=== PATIENT | female | born 1940 | race Caucasian/White ===

== ENCOUNTER → 2017-09-03 | Outpatient (CLI) | payer OTHER ==
[~2017-09-03] MED LIST: ALBU18HF7 IH; ALBU2.5V2 IH; ASPI-555 PO; AZIT250T PO; CALC-483 PO; CHOL3000 PO; Divalproex Sodium PO; FLUT1BLS IH; FOLI0.8C PO; FURO20TA4 PO; GABA-531 PO; INSU100V12 SQ; IOPAMIDOL-370 100 ML VIAL IV ONE; ISOS20TA7 PO; LANS30CA55 PO; LEVO150T11 PO; LEVO175T9 PO; LOSA25TA21 PO; MAGN400T40 PO; METO25TA6 PO; MONT10TA24 PO; NIAC1CAP PO; PANT40TA25 PO; PRED10TA3 PO; PRED2.5T PO; PRED20B PO; PRED5TAB PO; Prednisone PO; RIVA15TA PO; SUCR1TAB PO; SUCR1TAB2 PO; UBID1CAP56 PO; WARF-57 PO; WARF2.5T47 PO; WARF5TAB76 PO
== END | disposition home or self-care (01) ==
LOC: RAH 12:13
PROVIDERS: ATTEND Internal Medicine
DX: R06.02 Shortness of breath (principal); R07.9 Chest pain, unspecified; M47.895 Other spondylosis, thoracolumbar region; Z86.711 Personal history of pulmonary embolism
CPT/HCPCS: 71275; Q9967

== ENCOUNTER 2017-09-10 16:14 | Emergency (ER) | payer OTHER ==
[~2017-09-10 16:14] MED LIST changes: -ASPI-555 PO; -AZIT250T PO; -FOLI0.8C PO; -FURO20TA4 PO; -GABA-531 PO; -IOPAMIDOL-370 100 ML VIAL IV ONE; -ISOS20TA7 PO; -LEVO175T9 PO; -MAGN400T40 PO; -METO25TA6 PO; -NIAC1CAP PO; -PANT40TA25 PO; -PRED10TA3 PO; -PRED2.5T PO; -PRED5TAB PO; -SUCR1TAB2 PO; -UBID1CAP56 PO; -WARF-57 PO; -WARF2.5T47 PO; -WARF5TAB76 PO
[2017-09-10 16:46] LABS: BASOPHILS % (AUTO) 4.3 % (0.0-5.0); EOSINOPHILS % (AUTO) 0.1 % (0.0-8.0); HEMATOCRIT 42.6 % (36-48); LYMPHOCYTES % (AUTO) 9.5 % (21.0-51.0); MEAN CORPUSCULAR HEMOGLOBIN 29.5 pg (27.0-33.0); MEAN CORPUSCULAR HGB CONC 33.4 g/dL (32.0-36.0); MEAN CORPUSCULAR VOLUME 88.4 fL (79-99); MONOCYTES % (AUTO) 5.2 % (3.0-13.0); NEUTROPHILS % (AUTO) 80.9 % (40.0-77.0); NUCLEATED RED BLOOD CELLS 0.1 % (0.0-0.19); PLATELET COUNT (AUTO) 312 K/uL (130-400); RED BLOOD CELL COUNT(AUTO) 4.82 MIL/uL (4.00-5.50); RED CELL DISTRIBUTION WIDTH 14.6 % (11.0-15.5); WHITE BLOOD COUNT (AUTO) 11.3 K/uL (4.8-10.8)
[2017-09-10 16:56] LABS: INR 2.71 (0.85-1.15); PARTIAL THROMBOPLASTIN TIME 34.6 SEC (26.3-35.5); PROTHROMBIN TIME 27.9 SEC (9.6-11.6)
[2017-09-10 16:58] LABS: CREATININE 0.8 mg/dL (0.5-1.5); POTASSIUM 4.5 mmol/L (3.5-5.1)
[2017-09-10 17:01] LABS: B-TYPE NATRIURETIC PEPTIDE 63 pg/mL (0-100)
[2017-09-10 17:04] LABS: ALBUMIN 3.4 g/dL (3.5-5.0); BILIRUBIN,TOTAL 0.4 mg/dL (0.2-1.0)
[2017-09-10] MEDS ORDERED: NITROGLYCERIN 0.4 MG SL TAB SL ONE (18:03)
[2017-09-10] MEDS ORDERED: ASPIRIN 325 MG TABLET ONE (18:03)
== END 2017-09-10 20:26 | disposition home or self-care (01) ==
LOC: EDH 16:14
DX: R07.89 Other chest pain (principal); E11.9 Type 2 diabetes mellitus without complications; J45.909 Unspecified asthma, uncomplicated; I25.10 Atherosclerotic heart disease of native coronary artery without angina pectoris; E78.5 Hyperlipidemia, unspecified; I10 Essential (primary) hypertension; Z86.73 Personal history of transient ischemic attack (TIA), and cerebral infarction without residual deficits; E07.9 Disorder of thyroid, unspecified; Z88.0 Allergy status to penicillin; Z88.1 Allergy status to other antibiotic agents; Z88.5 Allergy status to narcotic agent; Z88.6 Allergy status to analgesic agent
CPT/HCPCS: 36415; 71045; 80053; 83880; 84484; 85025; 85610; 85730; 93005

== ENCOUNTER 2017-09-22 12:41 | Observation (INO) | payer OTHER ==
[~2017-09-22] VITALS: Ht 160 cm; Wt 91.9 kg
[2017-09-22 13:08] LABS: BASOPHILS % (AUTO) 0.9 % (0.0-5.0); EOSINOPHILS % (AUTO) 0.4 % (0.0-8.0); LYMPHOCYTES % (AUTO) 21.1 % (21.0-51.0); MEAN CORPUSCULAR HEMOGLOBIN 30.3 pg (27.0-33.0); MEAN CORPUSCULAR HGB CONC 34.2 g/dL (32.0-36.0); MEAN CORPUSCULAR VOLUME 88.4 fL (79-99); MONOCYTES % (AUTO) 6.3 % (3.0-13.0); NEUTROPHILS % (AUTO) 71.3 % (40.0-77.0); NUCLEATED RED BLOOD CELLS 0.1 % (0.0-0.19); PLATELET COUNT (AUTO) 247 K/uL (130-400); RED BLOOD CELL COUNT(AUTO) 4.41 MIL/uL (4.00-5.50); RED CELL DISTRIBUTION WIDTH 14.7 % (11.0-15.5); WHITE BLOOD COUNT (AUTO) 9.8 K/uL (4.8-10.8)
[2017-09-22 13:18] LABS: CREATININE 0.9 mg/dL (0.5-1.5); POTASSIUM 4.5 mmol/L (3.5-5.1)
[2017-09-22 13:19] LABS: INR 3.08 (0.85-1.15); PARTIAL THROMBOPLASTIN TIME 35.9 SEC (26.3-35.5); PROTHROMBIN TIME 31.6 SEC (9.6-11.6)
[2017-09-22 13:22] LABS: ALBUMIN 3.2 g/dL (3.5-5.0); BILIRUBIN,TOTAL 0.4 mg/dL (0.2-1.0); TOTAL PROTEIN, SERUM 6.2 g/dL (6.0-8.3)
[2017-09-22] MEDS ORDERED: IOPAMIDOL-370 100 ML VIAL IV ONE (15:55)
[2017-09-22] MEDS ORDERED: SODIUM CHLORIDE 0.9% 1000ML 1,000 ML IV ONE (17:22)
[2017-09-22 18:28] VITALS: BP 157/94
[2017-09-22] MEDS ORDERED: METO25TA6 PO (18:30)
[2017-09-22] MEDS ORDERED: FURO20TA4 PO (18:30)
[2017-09-22] MEDS ORDERED: INSU100V12 SQ (18:30)
[2017-09-22] MEDS ORDERED: WARF-57 PO (18:30)
[2017-09-22] MEDS ORDERED: ASPI-555 PO (18:30)
[2017-09-22] MEDS ORDERED: MAGN400T40 PO (18:30)
[2017-09-22] MEDS ORDERED: SUCR1TAB2 PO (18:30)
[2017-09-22] MEDS ORDERED: PANT40TA25 PO (18:30)
[2017-09-22] MEDS ORDERED: UBID1CAP56 PO (18:30)
[2017-09-22] MEDS ORDERED: ISOS20TA7 PO (18:30)
[2017-09-22] MEDS ORDERED: GABA-531 PO (18:30)
[2017-09-22] MEDS ORDERED: PRED2.5T PO (18:30)
[2017-09-22] MEDS ORDERED: FOLI0.8C PO (18:30)
[2017-09-22] MEDS ORDERED: LEVO175T9 PO (18:30)
[2017-09-22] MEDS ORDERED: PRED5TAB PO (18:30)
[2017-09-22] MEDS ORDERED: NIAC1CAP PO (18:30)
[2017-09-22] MEDS: SODIUM CHLORIDE 0.9% 1000ML 1,000 ML IV SCH (19:41)
[2017-09-22 19:45] VITALS: BP 149/84
[2017-09-22 20:26] LABS: CREATINE KINASE MB 0.7 ng/mL (0.5-3.6); CREATINE KINASE, TOTAL 39 U/L (21-232); MYOGLOBIN 34 ng/mL (10-92); TROPONIN I < 0.04 ng/mL (0.00-0.06)
[2017-09-22] MEDS ORDERED: LIDOCAINE HCL 2% VISCOUS 30 ML, MAG HYDROX/AL HYDROX/SIMETH 30 ML, BELLADONNA-PHENOBARB... PO PRN ×3 (21:15)
[2017-09-22] MEDS ORDERED: ONDANSETRON HCL 4 MG/2 ML VIAL IV PRN (21:15)
[2017-09-22] MEDS ORDERED: LIDOCAINE HCL-MPF 1% 2ML VIAL IVP PRN (21:15)
[2017-09-22] MEDS ORDERED: GUAIFENESIN-DM 200/20 MG 10 ML PO PRN (21:15)
[2017-09-22] MEDS ORDERED: CLONAZEPAM 0.5 MG TABLET PO PRN (21:15)
[2017-09-22] MEDS ORDERED: ALBUTEROL SULFATE 0.083% 2.5 MG/3 ML INH IH PRN (21:15)
[2017-09-22] MEDS ORDERED: DEXTROSE 50%-WATER 50 ML DISP.SYRIN IV PRN (21:15)
[2017-09-22] MEDS ORDERED: POTASSIUM CHLORIDE 20 MEQ ERTAB PO PRN (21:15)
[2017-09-22] MEDS ORDERED: POTASSIUM CHLORIDE 20MEQ/100ML 100 ML IV PRN (21:15)
[2017-09-22] MEDS ORDERED: GLUCAGON 1MG KIT 1 MG ML IM PRN (21:15)
[2017-09-22] MEDS ORDERED: SUCRALFATE 1 GM TABLET PO PRN (21:15)
[2017-09-22] MEDS ORDERED: MAG HYDROX/AL HYDROX/SIMETH ES 30 ML SUSP UDCUP PO PRN (21:15)
[2017-09-22] MEDS ORDERED: INSULIN DETEMIR 10ML 100 UNIT/ML 10ML SQ PRN (21:15)
[2017-09-22] MEDS ORDERED: POTASSIUM CHLORIDE 10% ELIXIR 20 MEQ/15 ML UDCUP PO PRN (21:15)
[2017-09-22] MEDS ORDERED: WARFARIN SODIUM 5 MG TAB PO SCH (21:15)
[2017-09-22] MEDS ORDERED: LACTULOSE 20 GM/30 ML UDCUP PO PRN (21:15)
[2017-09-22] MEDS ORDERED: CELECOXIB 200 MG CAP PO PRN (21:30)
[2017-09-22] MEDS: AZITHROMYCIN 250 MG TABLET PO SCH (23:15)
[2017-09-22] MEDS ORDERED: WARF5TAB76 PO (23:29)
[2017-09-22] MEDS ORDERED: WARF2.5T47 PO (23:29)
[2017-09-22 23:30] VITALS: BP 137/75
[2017-09-23 02:17] LABS: CREATINE KINASE MB 0.5 ng/mL (0.5-3.6); CREATINE KINASE, TOTAL 36 U/L (21-232); MYOGLOBIN 25 ng/mL (10-92); TROPONIN I < 0.04 ng/mL (0.00-0.06)
[2017-09-23] MEDS: SODIUM CHLORIDE 0.9% 1000ML 1,000 ML IV SCH (03:27)
[2017-09-23 04:18] VITALS: BP 131/75
[2017-09-23] MEDS ORDERED: LEVOTHYROXINE 75 MCG TABLET PO SCH (06:30)
[2017-09-23] MEDS: INSULIN HUMULIN R 100 UNIT/ML 3ML SQ SCH ×3 (06:31→16:30)
[2017-09-23] MEDS ORDERED: WARF2.5T47 PO (06:59)
[2017-09-23] MEDS ORDERED: WARF5TAB76 PO (06:59)
[2017-09-23 07:00] VITALS: BP 135/72
[2017-09-23] MEDS ORDERED: LEVOTHYROXINE 100 MCG TABLET PO SCH (07:30)
[2017-09-23] MEDS ORDERED: FLUTICASONE/VILANTEROL 1 EACH BLST.W.DEV IH SCH (09:00)
[2017-09-23] MEDS ORDERED: ASPIRIN 81 MG EC TAB PO SCH (09:00)
[2017-09-23] MEDS ORDERED: METOPROLOL TARTRATE 25 MG TAB PO SCH (09:00)
[2017-09-23] MEDS ORDERED: FOLIC ACID 1 MG TABLET PO SCH (09:00)
[2017-09-23] MEDS ORDERED: MAGNESIUM OXIDE 400 MG TABLET PO SCH (09:00)
[2017-09-23] MEDS ORDERED: PREDNISONE 5 MG TABLET PO SCH ×2 (09:00→21:00)
[2017-09-23] MEDS ORDERED: PANTOPRAZOLE SODIUM 40 MG TABLET.DR PO SCH ×2 (09:00→21:00)
[2017-09-23] MEDS ORDERED: AZIT250T PO (09:35)
[2017-09-23] MEDS ORDERED: PRED10TA3 PO (09:35)
[2017-09-23] MEDS ORDERED: PREDNISONE 20 MG TABLET ONE (10:37)
[2017-09-23 11:00] VITALS: BP 132/72
[2017-09-23 16:00] VITALS: BP 151/89
[2017-09-23] MEDS: AZITHROMYCIN 250 MG TABLET PO SCH (18:50)
[2017-09-23] MEDS ORDERED: WARFARIN SODIUM 2.5 MG TAB PO SCH (21:00)
[2017-09-23] MEDS ORDERED: ISOSORBIDE MONONITRATE 20 MG TABLET PO SCH (21:00)
[2017-09-23] MEDS ORDERED: WARFARIN SODIUM 5 MG TAB PO SCH ×2 (21:00)
[2017-09-23] MEDS ORDERED: LOSARTAN 50 MG TABLET PO SCH (21:00)
[2017-09-23] MEDS ORDERED: GABAPENTIN 300 MG CAPSULE PO SCH (21:00)
[2017-09-24] MEDS ORDERED: PREDNISONE 20 MG TABLET PO SCH (09:00)
[2017-09-25] MEDS ORDERED: WARFARIN SODIUM 2.5 MG TAB PO SCH (16:00)
== END 2017-09-23 19:00 | disposition home or self-care (01) ==
LOC: EDH 12:41 → EDHIP 15:26 → 4CH 17:59
PROVIDERS: ADMIT Internal Medicine; ATTEND Internal Medicine
DX: R07.89 Other chest pain (principal); R55 Syncope and collapse; J45.909 Unspecified asthma, uncomplicated; E11.9 Type 2 diabetes mellitus without complications; E78.5 Hyperlipidemia, unspecified; I10 Essential (primary) hypertension; E03.9 Hypothyroidism, unspecified; M31.6 Other giant cell arteritis; J84.10 Pulmonary fibrosis, unspecified; Z79.01 Long term (current) use of anticoagulants; Z79.52 Long term (current) use of systemic steroids; Z80.0 Family history of malignant neoplasm of digestive organs; Z80.3 Family history of malignant neoplasm of breast; Z82.0 Family history of epilepsy and other diseases of the nervous system; Z82.3 Family history of stroke; Z82.49 Family history of ischemic heart disease and other diseases of the circulatory system; Z82.5 Family history of asthma and other chronic lower respiratory diseases; Z83.3 Family history of diabetes mellitus; Z86.711 Personal history of pulmonary embolism; Z86.73 Personal history of transient ischemic attack (TIA), and cerebral infarction without residual deficits
CPT/HCPCS: 36415 ×2; 71045; 71275; 80053; 82550 ×2; 82553 ×2; 82948 ×3; 83874 ×2; 84484 ×3; 85025; 85610; 85730; 93005; 94664; 96360; 96361 ×2; 96372; 99285; G0378 ×28; J1815; J7030 ×2; Q9967

== ENCOUNTER → 2018-07-23 | Outpatient (CLI) | payer OTHER ==
[~2018-07-23] MED LIST changes: +ASPI-555 PO; +AZIT250T PO; -Divalproex Sodium PO; +FOLI0.8C PO; +FURO20TA4 PO; +GABA-531 PO; +ISOS20TA7 PO; -LANS30CA55 PO; -LEVO150T11 PO; +LEVO175T9 PO; +LOSA25TA16 PO; -LOSA25TA21 PO; +MAGN400T40 PO; +METO25TA6 PO; -MONT10TA24 PO; +NIAC1CAP PO; +PANT40TA25 PO; +PRED10TA3 PO; -PRED20B PO; -Prednisone PO; -RIVA15TA PO; -SUCR1TAB PO; +SUCR1TAB2 PO; +UBID1CAP56 PO; +WARF2.5T47 PO; +WARF5TAB76 PO
== END | disposition home or self-care (01) ==
LOC: RAH 12:59
PROVIDERS: ATTEND Internal Medicine
DX: M47.26 Other spondylosis with radiculopathy, lumbar region (principal); M51.16 Intervertebral disc disorders with radiculopathy, lumbar region; M48.061 Spinal stenosis, lumbar region without neurogenic claudication
CPT/HCPCS: 72148

== ENCOUNTER → 2020-01-28 | Outpatient (CLI) | payer OTHER ==
[~2020-01-28] MED LIST changes: -ASPI-555 PO; +ASPI-556 PO; -LOSA25TA16 PO; +LOSA25TA41 PO; +WARF2.5T PO; -WARF2.5T47 PO; +WARF5TAB PO; -WARF5TAB76 PO
== END | disposition home or self-care (01) ==
LOC: RAH 09:11
PROVIDERS: ATTEND Internal Medicine
DX: M47.814 Spondylosis without myelopathy or radiculopathy, thoracic region (principal); R07.81 Pleurodynia
CPT/HCPCS: 71100

== ENCOUNTER → 2020-02-10 | Outpatient (CLI) | payer OTHER ==
[~2020-02-10] MED LIST changes: -PANT40TA25 PO; +PANT40TA54 PO
== END | disposition home or self-care (01) ==
LOC: OIH 09:17
PROVIDERS: ATTEND Internal Medicine
DX: Z04.3 Encounter for examination and observation following other accident (principal); M19.031 Primary osteoarthritis, right wrist; J01.00 Acute maxillary sinusitis, unspecified
CPT/HCPCS: 70150; 73100

== ENCOUNTER → 2020-02-27 | Outpatient (CLI) | payer OTHER ==
[~2020-02-27] MED LIST changes: +PANT40TA25 PO; -PANT40TA54 PO
== END | disposition home or self-care (01) ==
LOC: RAH 10:14
PROVIDERS: ATTEND Internal Medicine
DX: M51.16 Intervertebral disc disorders with radiculopathy, lumbar region (principal); M48.061 Spinal stenosis, lumbar region without neurogenic claudication
CPT/HCPCS: 72148

== ENCOUNTER → 2020-05-04 | Outpatient (CLI) | payer OTHER ==
[~2020-05-04] MED LIST changes: -PANT40TA25 PO; +PANT40TA54 PO
== END | disposition home or self-care (01) ==
LOC: RAH 07:52
PROVIDERS: ATTEND Physical Medicine & Rehabilitation
DX: S22.088A Other fracture of T11-T12 vertebra, initial encounter for closed fracture (principal); X58.XXXA Exposure to other specified factors, initial encounter; Y93.89 Activity, other specified; Y92.89 Other specified places as the place of occurrence of the external cause; Y99.8 Other external cause status; M48.04 Spinal stenosis, thoracic region
CPT/HCPCS: 72146

== ENCOUNTER → 2020-06-04 | Outpatient (CLI) | payer OTHER | END | disposition home or self-care (01) | LOC: RAH 11:08 | PROVIDERS: ATTEND Physical Medicine & Rehabilitation | DX: M48.02 Spinal stenosis, cervical region (principal); M50.222 Other cervical disc displacement at C5-C6 level; M50.223 Other cervical disc displacement at C6-C7 level | CPT/HCPCS: 72141 ==

== ENCOUNTER → 2020-06-08 | Outpatient (CLI) | payer OTHER | END | disposition home or self-care (01) | LOC: RAH 10:00 | PROVIDERS: ATTEND Internal Medicine | DX: R20.2 Paresthesia of skin (principal); R22.41 Localized swelling, mass and lump, right lower limb; M79.89 Other specified soft tissue disorders | CPT/HCPCS: 93925; 93970 ==

== ENCOUNTER → 2020-07-15 | Outpatient (CLI) | payer OTHER | END | disposition home or self-care (01) | LOC: RAH 11:50 | PROVIDERS: ATTEND Internal Medicine | DX: J84.89 Other specified interstitial pulmonary diseases (principal); I10 Essential (primary) hypertension; M51.34 Other intervertebral disc degeneration, thoracic region | CPT/HCPCS: 71046 ==

== ENCOUNTER → 2020-08-30 | Outpatient (CLI) | payer MEDICARE | END | disposition home or self-care (01) | LOC: RAH 09:24 | PROVIDERS: ATTEND Neurological Surgery | DX: M85.88 Other specified disorders of bone density and structure, other site (principal); M43.22 Fusion of spine, cervical region; M50.30 Other cervical disc degeneration, unspecified cervical region | CPT/HCPCS: 72040 ==

== ENCOUNTER 2020-09-20 11:15 | Observation (INO) | payer MEDICARE ==
[~2020-09-20] VITALS: Ht 160 cm; Wt 92.5 kg
[~2020-09-20 11:15] MED LIST changes: -ISOS20TA7 PO; +ISOS20TA85 PO
[2020-09-20 11:45] LABS: EOSINOPHILS % (AUTO) 4.8 % (0.0-8.0); HEMATOCRIT 43.4 % (36-48); LYMPHOCYTES % (AUTO) 39.2 % (21.0-51.0); MEAN CORPUSCULAR HEMOGLOBIN 29.9 pg (27.0-33.0); MEAN CORPUSCULAR HGB CONC 33.9 g/dL (32.0-36.0); MEAN CORPUSCULAR VOLUME 88.4 fL (79-99); MONOCYTES % (AUTO) 8.5 % (3.0-13.0); NEUTROPHILS % (AUTO) 45.9 % (40.0-77.0); PLATELET COUNT (AUTO) 269 K/uL (130-400); RED BLOOD CELL COUNT(AUTO) 4.91 MIL/uL (4.00-5.50); WHITE BLOOD COUNT (AUTO) 7.2 K/uL (4.8-10.8)
[2020-09-20 11:55] LABS: POTASSIUM 3.7 mmol/L (3.5-5.1)
[2020-09-20 11:59] LABS: INR 1.7 (0.85-1.15); PROTHROMBIN TIME 17.7 SEC (9.6-11.6)
[2020-09-20 12:00] LABS: PARTIAL THROMBOPLASTIN TIME 31.8 SEC (26.3-35.5)
[2020-09-20 12:05] LABS: ALBUMIN 3.3 g/dL (3.5-5.0); BILIRUBIN,TOTAL 0.6 mg/dL (0.2-1.0); TOTAL PROTEIN, SERUM 6.9 g/dL (6.0-8.3)
[2020-09-20] MEDS ORDERED: SUCRALFATE 1 GM TABLET PO PRN (13:45)
[2020-09-20] MEDS ORDERED: WARF-57 PO (13:48)
[2020-09-20] MEDS ORDERED: SUCR1TAB2 PO (13:48)
[2020-09-20] MEDS ORDERED: INSU100I3 SQ (13:48)
[2020-09-20] MEDS ORDERED: PRED5TAB PO (13:48)
[2020-09-20] MEDS ORDERED: FURO40TA5 PO (13:48)
[2020-09-20] MEDS ORDERED: METO25TA6 PO (13:48)
[2020-09-20] MEDS ORDERED: LORA10TA7 PO (13:48)
[2020-09-20] MEDS ORDERED: WARF2.5T85 PO (13:48)
[2020-09-20] MEDS ORDERED: INSU100I24 SQ (13:48)
[2020-09-20] MEDS ORDERED: GABA300C PO (13:48)
[2020-09-20] MEDS ORDERED: POTA-79 PO (13:48)
[2020-09-20] MEDS ORDERED: DILT30TA38 PO ×2 (13:48)
[2020-09-20] MEDS ORDERED: PANT40TA54 PO (13:48)
[2020-09-20] MEDS ORDERED: FLUT1DIS3 IH (13:48)
[2020-09-20] MEDS ORDERED: DiphenhydrAMINE HCL 50 MG/ML VIAL IV PRN (14:00)
[2020-09-20] MEDS: SODIUM CHLORIDE 0.9% 1000ML 1,000 ML IV SCH (14:00)
[2020-09-20] MEDS ORDERED: POTASSIUM CHLORIDE 20 MEQ ERTAB PO PRN (14:00)
[2020-09-20] MEDS ORDERED: LIDOCAINE HCL-MPF 1% 2ML VIAL IV PRN (14:00)
[2020-09-20] MEDS ORDERED: DEXTROSE 50%-WATER 50 ML DISP.SYRIN IV PRN (14:00)
[2020-09-20] MEDS ORDERED: ONDANSETRON HCL 4 MG/2 ML VIAL IV PRN (14:00)
[2020-09-20] MEDS ORDERED: POTASSIUM CHLORIDE 10% ELIXIR 20 MEQ/15 ML UDCUP PO PRN (14:00)
[2020-09-20] MEDS ORDERED: LACTULOSE 20 GM/30 ML UDCUP PO PRN (14:00)
[2020-09-20] MEDS ORDERED: GLUCAGON 1MG KIT 1 MG ML IM PRN (14:00)
[2020-09-20] MEDS ORDERED: POTASSIUM CHLORIDE 20MEQ/100ML 100 ML IV PRN (14:00)
[2020-09-20] MEDS ORDERED: DIPHENHYDRAMINE HCL 25 MG CAPSULE PO PRN (14:00)
[2020-09-20] MEDS ORDERED: ALBUTEROL SULFATE 0.083% 2.5 MG/3 ML INH IH PRN (14:00)
[2020-09-20] MEDS ORDERED: ACETAMINOPHEN 325 MG TAB PO PRN ×2 (14:00)
[2020-09-20] MEDS ORDERED: MAG HYDROX/AL HYDROX/SIMETH ES 30 ML SUSP UDCUP PO PRN (14:00)
[2020-09-20] MEDS ORDERED: MECLIZINE HCL 25 MG TABLET ONE (14:01)
[2020-09-20] MEDS ORDERED: PHARMACY COMMUNICATION MISC SCH (14:30)
[2020-09-20] MEDS ORDERED: WARFARIN SODIUM 1 MG TAB PO SCH (16:00)
[2020-09-20 16:38] VITALS: BP 146/82
[2020-09-20] MEDS: ADVAIR 250-50 DISKUS IH SCH (18:00)
[2020-09-20 20:56] VITALS: BP 137/79
[2020-09-20] MEDS ORDERED: SUB TO BREO ELLIPTA 100MCG/25MCG PER P&T IH SCH (21:00)
[2020-09-20] MEDS ORDERED: DILTIAZEM HCL 30 MG PO SCH (21:00)
[2020-09-20] MEDS: DILTIAZEM HCL 60 MG TABLET PO SCH (21:27)
[2020-09-20] MEDS: METOPROLOL TARTRATE 25 MG TAB PO SCH (21:27)
[2020-09-20] MEDS: ISOSORBIDE MONONITRATE 20 MG TABLET PO SCH (21:27)
[2020-09-21 00:16] VITALS: BP 97/50
[2020-09-21] MEDS: SODIUM CHLORIDE 0.9% 1000ML 1,000 ML IV SCH ×3 (03:02→18:03)
[2020-09-21 05:04] LABS: HEMATOCRIT 40.9 % (36-48); MEAN CORPUSCULAR HGB CONC 32.3 g/dL (32.0-36.0); MEAN CORPUSCULAR VOLUME 89.9 fL (79-99); RED BLOOD CELL COUNT(AUTO) 4.55 MIL/uL (4.00-5.50); RED CELL DISTRIBUTION WIDTH 14.2 % (11.0-15.5); WHITE BLOOD COUNT (AUTO) 7.9 K/uL (4.8-10.8)
[2020-09-21 05:17] LABS: CREATININE 1.1 mg/dL (0.5-1.5); POTASSIUM 4.3 mmol/L (3.5-5.1)
[2020-09-21 05:18] LABS: INR 1.81 (0.85-1.15); PROTHROMBIN TIME 18.7 SEC (9.6-11.6)
[2020-09-21 06:09] VITALS: BP 111/63
[2020-09-21] MEDS: LEVOTHYROXINE 150 MCG TABLET PO SCH (06:18)
[2020-09-21] MEDS: LEVOTHYROXINE 25 MCG TABLET PO SCH (06:18)
[2020-09-21] MEDS ORDERED: NON-FORMULARY MEDICATION 1 EACH (Levothyroxine Sodium 175 MCG) PO SCH (07:30)
[2020-09-21 07:39] VITALS: BP 109/58
[2020-09-21] MEDS ORDERED: INSULIN GLARGINE 100 UNITS/ML 10 ML VIAL SQ SCH (09:00)
[2020-09-21] MEDS: METOPROLOL TARTRATE 25 MG TAB PO SCH ×2 (09:15→22:50)
[2020-09-21] MEDS: METHYLPREDNISOLONE SOD SUCC 125MG/2ML VIAL IVP SCH ×4 (09:15→22:49)
[2020-09-21] MEDS: PANTOPRAZOLE SODIUM 40 MG TABLET.DR PO SCH (09:16)
[2020-09-21] MEDS: LORATADINE 10 MG TABLET PO SCH (09:17)
[2020-09-21] MEDS: DILTIAZEM HCL 60 MG TABLET PO SCH ×2 (09:17→22:50)
[2020-09-21 11:36] VITALS: BP 103/57
[2020-09-21 15:46] VITALS: BP 136/71
[2020-09-21] MEDS: WARFARIN SODIUM 2 MG TAB PO SCH (17:50)
[2020-09-21] MEDS: ADVAIR 250-50 DISKUS IH SCH (18:00)
[2020-09-21] MEDS ORDERED: GLUCAGON 1MG KIT 1 MG ML IM PRN (19:15)
[2020-09-21] MEDS ORDERED: DEXTROSE 50%-WATER 50 ML DISP.SYRIN IV PRN (19:15)
[2020-09-21 21:16] VITALS: BP 125/59
[2020-09-21] MEDS: ISOSORBIDE MONONITRATE 20 MG TABLET PO SCH (22:49)
[2020-09-21] MEDS: INSULIN HUMULIN R 100 UNIT/ML 3ML SQ SCH (23:18)
[2020-09-21] MEDS: INSULIN GLARGINE 100 UNITS/ML 10 ML VIAL SQ SCH (23:19)
[2020-09-22 00:56] VITALS: BP 126/76
[2020-09-22] MEDS: METHYLPREDNISOLONE SOD SUCC 125MG/2ML VIAL IVP SCH ×3 (01:15→10:26)
[2020-09-22] MEDS ORDERED: KETOROLAC TROMETHAMINE 15MG/ML IV ONE (04:30)
[2020-09-22] MEDS ORDERED: GABAPENTIN 300 MG CAPSULE ONE (04:35)
[2020-09-22 04:51] VITALS: BP 133/67
[2020-09-22] MEDS: ADVAIR 250-50 DISKUS IH SCH (06:00)
[2020-09-22 06:14] LABS: INR 1.7 (0.85-1.15); PROTHROMBIN TIME 17.7 SEC (9.6-11.6)
[2020-09-22] MEDS: LEVOTHYROXINE 150 MCG TABLET PO SCH (06:40)
[2020-09-22] MEDS: LEVOTHYROXINE 25 MCG TABLET PO SCH (06:40)
[2020-09-22] MEDS: INSULIN HUMULIN R 100 UNIT/ML 3ML SQ SCH ×3 (07:30→18:01)
[2020-09-22 10:17] VITALS: BP 148/83
[2020-09-22] MEDS: DILTIAZEM HCL 60 MG TABLET PO SCH (10:22)
[2020-09-22] MEDS: METOPROLOL TARTRATE 25 MG TAB PO SCH (10:23)
[2020-09-22] MEDS: LORATADINE 10 MG TABLET PO SCH (10:24)
[2020-09-22] MEDS: PANTOPRAZOLE SODIUM 40 MG TABLET.DR PO SCH (10:25)
[2020-09-22] MEDS: INSULIN GLARGINE 100 UNITS/ML 10 ML VIAL SQ SCH ×2 (10:59→18:04)
[2020-09-22 12:00] VITALS: BP 130/77
[2020-09-22] MEDS ORDERED: PRED10TA3 PO (12:19)
[2020-09-22] MEDS ORDERED: INSU100I3 SQ (12:19)
[2020-09-22] MEDS: GABAPENTIN 300 MG CAPSULE PO SCH ×2 (12:39→16:43)
[2020-09-22] MEDS: WARFARIN SODIUM 2 MG TAB PO SCH (16:45)
[2020-09-22 17:40] VITALS: BP 125/67
[2020-09-23] MEDS ORDERED: PREDNISONE 20 MG TABLET PO SCH (09:00)
== END 2020-09-22 18:30 ==
LOC: EDH 11:15 → EDHIP 13:52 → 3DH 16:28
PROVIDERS: ADMIT Internal Medicine; ATTEND Internal Medicine
DX: R42 Dizziness and giddiness (principal); J44.9 Chronic obstructive pulmonary disease, unspecified; E03.9 Hypothyroidism, unspecified; E11.22 Type 2 diabetes mellitus with diabetic chronic kidney disease; I13.0 Hypertensive heart and chronic kidney disease with heart failure and stage 1 through stage 4 chronic kidney disease, or unspecified chronic kidney disease; N18.6 End stage renal disease; I50.32 Chronic diastolic (congestive) heart failure; K21.9 Gastro-esophageal reflux disease without esophagitis; E78.2 Mixed hyperlipidemia; M81.0 Age-related osteoporosis without current pathological fracture; M19.90 Unspecified osteoarthritis, unspecified site; I25.10 Atherosclerotic heart disease of native coronary artery without angina pectoris; I25.2 Old myocardial infarction; E11.42 Type 2 diabetes mellitus with diabetic polyneuropathy; E11.43 Type 2 diabetes mellitus with diabetic autonomic (poly)neuropathy; I95.1 Orthostatic hypotension; I48.0 Paroxysmal atrial fibrillation; I48.20 Chronic atrial fibrillation, unspecified; M31.6 Other giant cell arteritis; E11.51 Type 2 diabetes mellitus with diabetic peripheral angiopathy without gangrene; I82.401 Acute embolism and thrombosis of unspecified deep veins of right lower extremity; I26.99 Other pulmonary embolism without acute cor pulmonale; T46.6X5A Adverse effect of antihyperlipidemic and antiarteriosclerotic drugs, initial encounter; G72.0 Drug-induced myopathy; M48.061 Spinal stenosis, lumbar region without neurogenic claudication; M48.02 Spinal stenosis, cervical region; G95.29 Other cord compression; M48.56XA Collapsed vertebra, not elsewhere classified, lumbar region, initial encounter for fracture; Z86.73 Personal history of transient ischemic attack (TIA), and cerebral infarction without residual deficits; Z96.653 Presence of artificial knee joint, bilateral; Z90.49 Acquired absence of other specified parts of digestive tract; Z95.828 Presence of other vascular implants and grafts; Z99.2 Dependence on renal dialysis; Z79.01 Long term (current) use of anticoagulants; Z79.52 Long term (current) use of systemic steroids; Z79.4 Long term (current) use of insulin; Z79.51 Long term (current) use of inhaled steroids; Z79.899 Other long term (current) drug therapy; X58.XXXA Exposure to other specified factors, initial encounter; Y93.89 Activity, other specified; Y92.89 Other specified places as the place of occurrence of the external cause
CPT/HCPCS: 36415 ×3; 70450; 70544; 70551; 71045; 72125; 72128; 72131; 72192; 80048; 80053; 82948 ×8; 84484; 85025; 85027; 85610 ×3; 85730; 93005; 94664; 96361 ×2; 96374; 96376 ×2; 97039 ×3; 97161; 97530; 99285; G0378 ×51; G8978; G8979; G8980; G8981; G8982; G8983; J1815 ×2; J2930 ×3; J1885

== ENCOUNTER 2022-08-09 05:35 | Day surgery (SDC) | payer OTHER ==
[2022-08-08 12:52] LABS: BASOPHILS % (AUTO) 0.9 % (0.0-5.0); EOSINOPHILS % (AUTO) 1.1 % (0.0-8.0); HEMATOCRIT 43.5 % (36-48); LYMPHOCYTES % (AUTO) 19.8 % (21.0-51.0); MEAN CORPUSCULAR HEMOGLOBIN 29.9 pg (27.0-33.0); MEAN CORPUSCULAR HGB CONC 32.9 g/dL (32.0-36.0); MONOCYTES % (AUTO) 6.9 % (3.0-13.0); NEUTROPHILS % (AUTO) 70.7 % (40.0-77.0); PLATELET COUNT (AUTO) 267 K/uL (130-400); RED BLOOD CELL COUNT(AUTO) 4.78 MIL/uL (4.00-5.50); RED CELL DISTRIBUTION WIDTH 13.3 % (11.0-15.5)
[2022-08-08 12:53] VITALS: BP 137/70
[2022-08-08 13:11] LABS: INR 1.05 (0.85-1.15); PROTHROMBIN TIME 11.4 SEC (9.6-11.6)
[2022-08-08 13:19] LABS: CREATININE 1.1 mg/dL (0.5-1.5); POTASSIUM 3.8 mmol/L (3.5-5.1)
[2022-08-08 13:28] LABS: PARTIAL THROMBOPLASTIN TIME 27.9 SEC (26.3-35.5)
[2022-08-09] VITALS (8 sets, daily range): BP systolic 105–128; BP diastolic 56–78
[~2022-08-09] VITALS: Ht 160 cm; Wt 90.1 kg
[~2022-08-09 05:35] MED LIST changes: -ALBU18HF7 IH; -ASPI-556 PO; -AZIT250T PO; -CALC-483 PO; -CHOL3000 PO; +DILT30TA38 PO; -FLUT1BLS IH; +FLUT1BLS3 IH; -FOLI0.8C PO; -FURO20TA4 PO; +FURO40TA5 PO; -GABA-531 PO; +GABA300C PO; +INSU100I3 SQ; -INSU100V12 SQ; +INSU100V37 SQ; -LOSA25TA41 PO; -MAGN400T40 PO; -NIAC1CAP PO; -PRED10TA3 PO; +PRED5TAB PO; -SUCR1TAB2 PO; -UBID1CAP56 PO; +WARF-57 PO; -WARF2.5T PO; +WARF2.5T85 PO; -WARF5TAB PO
[2022-08-09] MEDS ORDERED: ISOVUE-M 200 20 ML VIAL IT ONE (07:24)
[2022-08-09] MEDS ORDERED: LIDOCAINE HCL MPF 1% 5ML VIAL ONE (07:31)
[2022-08-09 09:21] LABS: APPEARANCE,CSF CLEAR (CLEAR); COLOR,CSF COLORLESS (COLORLESS); CSF TUBE NUMBER 1; RED BLOOD CELL1,CSF 3 CMM (0-0); WHITE BLOOD CELL1,CSF 0 CMM (0-5)
[2022-08-09] MEDS ORDERED: KETOROLAC 30MG VIAL (30MG/ML) ONE (09:47)
[2022-08-09] MEDS ORDERED: KETOROLAC 60 MG VIAL (30MG/ML) IM ONE (10:00)
== END 2022-08-09 12:15 | disposition home or self-care (01) ==
LOC: DAH 05:35
PROVIDERS: ATTEND Neurological Surgery
DX: M51.16 Intervertebral disc disorders with radiculopathy, lumbar region (principal); Z20.822 Contact with and (suspected) exposure to COVID-19; M48.061 Spinal stenosis, lumbar region without neurogenic claudication; M40.46 Postural lordosis, lumbar region; I48.91 Unspecified atrial fibrillation; Z79.01 Long term (current) use of anticoagulants; Z79.899 Other long term (current) drug therapy; Z79.4 Long term (current) use of insulin; Z79.890 Hormone replacement therapy; Z86.718 Personal history of other venous thrombosis and embolism; Z88.6 Allergy status to analgesic agent; Z88.0 Allergy status to penicillin; Z88.8 Allergy status to other drugs, medicaments and biological substances
CPT/HCPCS: 87426; 80048; 85025; 85610; 85730; 36415; 93005; 62304; 72132; 89051; 82948; A4663; Q9966; J1885 ×2; J3490

== ENCOUNTER 2022-09-22 16:46 | Emergency (ER) | payer OTHER ==
[~2022-09-22] VITALS: Ht 160 cm; Wt 88.5 kg
[2022-09-22 17:11] LABS: BASOPHILS % (AUTO) 0.7 % (0.0-5.0); EOSINOPHILS % (AUTO) 1.2 % (0.0-8.0); HEMATOCRIT 41.3 % (36-48); MEAN CORPUSCULAR HEMOGLOBIN 30.1 pg (27.0-33.0); MEAN CORPUSCULAR HGB CONC 33.7 g/dL (32.0-36.0); MEAN CORPUSCULAR VOLUME 89.4 fL (79-99); MONOCYTES % (AUTO) 9.6 % (3.0-13.0); NEUTROPHILS % (AUTO) 59.1 % (40.0-77.0); PLATELET COUNT (AUTO) 249 K/uL (130-400); RED BLOOD CELL COUNT(AUTO) 4.62 MIL/uL (4.00-5.50); RED CELL DISTRIBUTION WIDTH 13.5 % (11.0-15.5)
[2022-09-22 17:17] LABS: CREATININE 1.3 mg/dL (0.5-1.5); POTASSIUM 4.1 mmol/L (3.5-5.1)
[2022-09-22 17:24] LABS: ALBUMIN 3.9 g/dL (3.5-5.0); TOTAL PROTEIN, SERUM 7.4 g/dL (6.0-8.3)
[2022-09-22 17:30] LABS: B-TYPE NATRIURETIC PEPTIDE 129 pg/mL (0-100)
[2022-09-22] MEDS ORDERED: MORPHINE 2 MG SYG IM ONE (20:00)
[2022-09-22] MEDS ORDERED: MORPHINE 2 MG SYG IVP ONE (22:00)
[2022-09-22 22:16] VITALS: BP 147/61
[2022-09-26] MEDS ORDERED: DICL20GE TP (14:32)
[2022-09-26] MEDS ORDERED: [UNRECOGNIZED DRUG - CODE] TP (14:32)
== END 2022-09-22 22:18 | disposition home or self-care (01) ==
LOC: EDH 16:46
DX: M79.602 Pain in left arm (principal); R07.81 Pleurodynia; W01.0XXA Fall on same level from slipping, tripping and stumbling without subsequent striking against object, initial encounter; Y93.89 Activity, other specified; Y92.091 Bathroom in other non-institutional residence as the place of occurrence of the external cause; Y99.8 Other external cause status; Z88.0 Allergy status to penicillin; Z88.1 Allergy status to other antibiotic agents; Z88.5 Allergy status to narcotic agent; Z88.8 Allergy status to other drugs, medicaments and biological substances; Z91.018 Allergy to other foods; Z91.030 Bee allergy status; Z79.899 Other long term (current) drug therapy
CPT/HCPCS: 36415; 71045; 71100; 80053; 83735; 83880; 84484; 85025; 93005; 96372; 96374

== ENCOUNTER 2022-10-27 09:31 | Emergency (ER) | payer OTHER ==
[~2022-10-27] VITALS: Ht 160 cm; Wt 88.5 kg
[~2022-10-27 09:31] MED LIST changes: +DICL20GE TP; +[UNRECOGNIZED DRUG - CODE] TP
[2022-10-27] MEDS ORDERED: PANTOPRAZOLE 40 MG/VIAL IVP ONE (10:00)
[2022-10-27 10:02] LABS: BASOPHILS % (AUTO) 0.8 % (0.0-5.0); EOSINOPHILS % (AUTO) 3.5 % (0.0-8.0); HEMATOCRIT 38.9 % (36-48); LYMPHOCYTES % (AUTO) 36.8 % (21.0-51.0); MEAN CORPUSCULAR HEMOGLOBIN 30.1 pg (27.0-33.0); MEAN CORPUSCULAR HGB CONC 33.4 g/dL (32.0-36.0); MONOCYTES % (AUTO) 9.8 % (3.0-13.0); NEUTROPHILS % (AUTO) 48.5 % (40.0-77.0); PLATELET COUNT (AUTO) 264 K/uL (130-400); RED BLOOD CELL COUNT(AUTO) 4.32 MIL/uL (4.00-5.50); RED CELL DISTRIBUTION WIDTH 13.8 % (11.0-15.5); WHITE BLOOD COUNT (AUTO) 8.9 K/uL (4.8-10.8)
[2022-10-27 10:17] LABS: CREATININE 1.1 mg/dL (0.5-1.5)
[2022-10-27 10:22] LABS: ALBUMIN 3.5 g/dL (3.5-5.0); TOTAL PROTEIN, SERUM 7.1 g/dL (6.0-8.3)
[2022-10-27] MEDS ORDERED: MAG/ALUM/SIMETH 30 ML UDCUP PO ONE (10:30)
[2022-10-27] MEDS ORDERED: LIDOCAINE HCL 2% VISCOUS 15 ML UDCUP PO ONE (10:30)
[2022-10-27] MEDS ORDERED: MAG/ALUM/SIMETH 30 ML UDCUP ONE (10:34)
[2022-10-27] MEDS ORDERED: LIDOCAINE HCL 2% VISCOUS 15 ML UDCUP ONE (10:34)
[2022-10-27 11:43] LABS: APPEARANCE,URINE CLEAR (CLEAR); BILIRUBIN,URINE NEGATIVE (NEGATIVE); COLOR,URINE LIGHT-YELLOW (YELLOW); GLUCOSE, URINE (UA) NEGATIVE (NEGATIVE); KETONES,URINE NEGATIVE (NEGATIVE); LEUKOCYTE ESTERASE ,URINE NEGATIVE Leu/uL (NEGATIVE); NITRATE,URINE NEGATIVE (NEGATIVE); PROTEIN,URINE NEGATIVE (NEGATIVE); UROBILINOGEN,URINE 0.2 mg/dL (0.2-1.0)
[2022-10-27 11:51] LABS: RBC,URINE 0-1 /HPF (0-1); SQUAMOUS EPITHELIAL CELL,UR RARE /HPF (0-2); WBC,URINE 0-1 /HPF (0-1)
[2022-10-27] MEDS ORDERED: PANT40TA55 PO (13:32)
[2022-10-27 14:09] VITALS: BP 124/70
== END 2022-10-27 14:10 | disposition home or self-care (01) ==
LOC: EDH 09:31
DX: K21.9 Gastro-esophageal reflux disease without esophagitis (principal); M19.90 Unspecified osteoarthritis, unspecified site; E11.9 Type 2 diabetes mellitus without complications; J45.909 Unspecified asthma, uncomplicated; K57.30 Diverticulosis of large intestine without perforation or abscess without bleeding; Z79.899 Other long term (current) drug therapy; Z90.49 Acquired absence of other specified parts of digestive tract; Z90.89 Acquired absence of other organs; Z98.890 Other specified postprocedural states; Z88.0 Allergy status to penicillin; Z88.1 Allergy status to other antibiotic agents; Z88.5 Allergy status to narcotic agent; Z88.8 Allergy status to other drugs, medicaments and biological substances; Z91.030 Bee allergy status; Z91.010 Allergy to peanuts; Z91.018 Allergy to other foods
CPT/HCPCS: 99285; 74176; 96374; 71045; 84484 ×2; 80053; 83690; 85025; 81001; 36415; 93005 ×2; C9113

== ENCOUNTER 2022-11-13 11:30 | Emergency (ER) | payer OTHER ==
[~2022-11-13] VITALS: Ht 160 cm; Wt 43.1 kg
[~2022-11-13 11:30] MED LIST changes: +PANT40TA55 PO
[2022-11-13] MEDS ORDERED: MORPHINE 2 MG SYG IM ONE (14:30)
[2022-11-13] MEDS ORDERED: LIDOCAINE 5% TOPICAL PATCH TP ONE (14:30)
[2022-11-13] MEDS ORDERED: ONDANSETRON ODT 4MG TAB SL ONE (14:30)
[2022-11-13 14:37] LABS: APPEARANCE,URINE CLEAR (CLEAR); BILIRUBIN,URINE NEGATIVE (NEGATIVE); COLOR,URINE LIGHT-YELLOW (YELLOW); GLUCOSE, URINE (UA) NEGATIVE (NEGATIVE); KETONES,URINE NEGATIVE (NEGATIVE); LEUKOCYTE ESTERASE ,URINE NEGATIVE Leu/uL (NEGATIVE); NITRATE,URINE NEGATIVE (NEGATIVE); PROTEIN,URINE NEGATIVE (NEGATIVE); UROBILINOGEN,URINE 0.2 mg/dL (0.2-1.0)
[2022-11-13 14:47] LABS: WBC,URINE 0-1 /HPF (0-1)
[2022-11-13 15:01] LABS: BASOPHILS % (AUTO) 0.9 % (0.0-5.0); EOSINOPHILS % (AUTO) 3.9 % (0.0-8.0); HEMATOCRIT 36.5 % (36-48); LYMPHOCYTES % (AUTO) 27.4 % (21.0-51.0); MEAN CORPUSCULAR HEMOGLOBIN 29.9 pg (27.0-33.0); MEAN CORPUSCULAR HGB CONC 32.6 g/dL (32.0-36.0); MEAN CORPUSCULAR VOLUME 91.7 fL (79-99); MONOCYTES % (AUTO) 9.8 % (3.0-13.0); NEUTROPHILS % (AUTO) 57.5 % (40.0-77.0); PLATELET COUNT (AUTO) 256 K/uL (130-400); RED BLOOD CELL COUNT(AUTO) 3.98 MIL/uL (4.00-5.50); RED CELL DISTRIBUTION WIDTH 13.7 % (11.0-15.5); WHITE BLOOD COUNT (AUTO) 8.5 K/uL (4.8-10.8)
[2022-11-13 15:08] LABS: CREATININE 1.2 mg/dL (0.5-1.5); POTASSIUM 4.1 mmol/L (3.5-5.1)
[2022-11-13 15:13] LABS: ALBUMIN 3.5 g/dL (3.5-5.0); TOTAL PROTEIN, SERUM 6.8 g/dL (6.0-8.3)
[2022-11-13] MEDS ORDERED: IBUP-2070 PO (16:47)
[2022-11-13] MEDS ORDERED: LIDO1ADH48 TP (16:47)
[2022-11-13] MEDS ORDERED: PRED20TA3 PO (16:47)
[2022-11-13] MEDS ORDERED: CIPR-278 PO (16:50)
[2022-11-13] MEDS ORDERED: METR-172 PO (16:50)
[2022-11-13 17:12] VITALS: BP 128/62
== END 2022-11-13 17:29 | disposition home or self-care (01) ==
LOC: EDH 11:30
DX: K57.92 Diverticulitis of intestine, part unspecified, without perforation or abscess without bleeding (principal); M54.50 Low back pain, unspecified; E11.9 Type 2 diabetes mellitus without complications; J45.909 Unspecified asthma, uncomplicated; M19.90 Unspecified osteoarthritis, unspecified site; Z79.899 Other long term (current) drug therapy; Z86.711 Personal history of pulmonary embolism; Z88.0 Allergy status to penicillin; Z88.1 Allergy status to other antibiotic agents; Z88.5 Allergy status to narcotic agent; Z88.8 Allergy status to other drugs, medicaments and biological substances; Z90.49 Acquired absence of other specified parts of digestive tract; Z91.030 Bee allergy status; Z90.89 Acquired absence of other organs; Z91.018 Allergy to other foods
CPT/HCPCS: 36415; 74176; 80053; 81001; 85025; 96372